=== PATIENT | female | born 1970 | race Asian ===

== ENCOUNTER → 2017-06-14 | Outpatient (CLI) | payer OTHER ==
[~2017-06-14] MED LIST: HYDR25TA11 PO; MEDR10TA3 PO
[2017-06-14 10:23] LABS: HEMATOCRIT 31.7 % (34.6-47.8); HEMOGLOBIN 10.1 g/dL (11.7-16.4); WHITE BLOOD COUNT 5.8 x10^3/uL (3.4-10)
== END | disposition home or self-care (01) ==
LOC: STAR 08:43
PROVIDERS: ATTEND Obstetrics & Gynecology Female Pelvic Medicine and Reconstructive Surgery
DX: Z01.818 Encounter for other preprocedural examination (principal); N92.6 Irregular menstruation, unspecified; N94.6 Dysmenorrhea, unspecified; N81.10 Cystocele, unspecified
CPT/HCPCS: 36415; 85025

== ENCOUNTER 2017-06-18 09:36 | Observation (INO) | payer MEDICAID, OTHER ==
[~2017-06-18] VITALS: Ht 149.9 cm; Wt 46.6 kg
[~2017-06-18 09:36] MED LIST changes: +BUPIVACAINE/PF 0.25% ONE; +EPINEPHRINE 1 MG/ML, 1ML ONE; +NEOMY/POLYMYXIN B GU IRR. 1 ML IRRIG ONE
[2017-06-18] MEDS ORDERED: LACTATED RINGERS 1,000 ML IV SCH (10:09)
[2017-06-18 10:18] LABS: HCG UR LOT HCG7030192
[2017-06-18 10:31] LABS: HCG UR OBC PASS
[2017-06-18] MEDS ORDERED: SCOPOLAMINE PATCH, 1MG PATCH.TD72 TD ONE ×2 (13:30)
[2017-06-18] MEDS ORDERED: ROCURONIUM 10 MG/ML ONE (13:33)
[2017-06-18] MEDS ORDERED: ONDANSETRON 2MG/ML, 2ML ONE (13:33)
[2017-06-18] MEDS ORDERED: SUCCINYLCHOLINE 20 MG/ML, 10ML ONE (13:33)
[2017-06-18] MEDS ORDERED: PROPOFOL 10 MG/ML, 20ML ONE (13:33)
[2017-06-18] MEDS ORDERED: DEXAMETHASONE 4 MG/ML, 1ML ONE (13:33)
[2017-06-18] MEDS ORDERED: GLYCOPYRROLATE 0.2MG/1ML, 5ML ONE (13:33)
[2017-06-18] MEDS ORDERED: MIDAZOLAM 1 MG/ML, 2ML ONE (13:33)
[2017-06-18] MEDS ORDERED: NEOSTIGMINE 1 MG/ML, 10ML ONE (13:33)
[2017-06-18] MEDS ORDERED: CEFAZOLIN 1,000 MG ONE (13:33)
[2017-06-18] MEDS ORDERED: FENTANYL PF 250 MCG/5ML ONE (13:33)
[2017-06-18] MEDS ORDERED: MIDAZOLAM 1 MG/ML, 2ML IV PRN (14:30)
[2017-06-18] MEDS ORDERED: ACETAMINOPHEN 325 MG TABLET PO PRN ×2 (14:30→19:30)
[2017-06-18] MEDS ORDERED: OXYcodone 5 MG/5 ML ORAL.SOL UDC PO PRN (14:30)
[2017-06-18] MEDS ORDERED: hydrALAzine 20 MG/ML, 1ML IV PRN (14:30)
[2017-06-18] MEDS ORDERED: METOPROLOL 1 MG/ML, 5ML IV PRN (14:30)
[2017-06-18] MEDS ORDERED: ALBUTEROL SULFATE 2.5 MG/3 ML NPPB PRN (14:30)
[2017-06-18] MEDS ORDERED: FENTANYL PF 100 MCG/2ML IV PRN (14:30)
[2017-06-18] MEDS ORDERED: MEPERIDINE/PF 25MG/0.5ML IVPush PRN (14:30)
[2017-06-18] MEDS ORDERED: EPHEDRINE 50 MG/ML, 1ML ONE (14:45)
[2017-06-18] MEDS ORDERED: FENTANYL PF 100 MCG/2ML ONE (16:15)
[2017-06-18] MEDS ORDERED: PROMETHAZINE 25 MG/ML, 1ML ONE (16:15)
[2017-06-18] MEDS: PROMETHAZINE 25 MG/ML, 1ML IV PRN ×2 (16:20→16:41)
[2017-06-18] MEDS ORDERED: HYDROmorphone 1 MG/ML, 1ML ONE (16:36)
[2017-06-18] MEDS: HYDROmorphone 1 MG/ML, 1ML IV PRN ×2 (16:38→16:49)
[2017-06-18] MEDS ORDERED: HYDROmorphone 2 MG/ML, 1ML IV PRN (19:30)
[2017-06-18] MEDS ORDERED: ONDANSETRON 2MG/ML, 2ML IV PRN (19:30)
[2017-06-18] MEDS ORDERED: SODIUM CHLORIDE 0.9%, 500ML IVBOLUS PRN ×2 (19:30→20:00)
[2017-06-18] MEDS ORDERED: OXYcodone/APAP 5/325MG TABLET PO PRN (19:30)
[2017-06-18] MEDS ORDERED: ACETAMINOPHEN 650 MG SUPP PR PRN (19:30)
[2017-06-18] MEDS ORDERED: SODIUM CHLORIDE FLUSH 10ML SYR IVF SCH (21:00)
[2017-06-18] MEDS ORDERED: SIMETHICONE 80 MG CHEW TAB PO SCH (21:00)
[2017-06-18] MEDS ORDERED: MEDROXYPROGESTERONE ACETATE 5 MG TABLET PO SCH (21:00)
[2017-06-18] MEDS ORDERED: DOCUSATE 100 MG CAPSULE PO SCH (21:00)
[2017-06-18] MEDS ORDERED: IBUPROFEN 600 MG TABLET PO SCH (21:00)
[2017-06-18] MEDS ORDERED: ZOLPIDEM 5MG TABLET PO PRN (21:00)
== END 2017-06-18 23:00 | disposition home or self-care (01) ==
LOC: OUT 09:36 → 4NOR 18:57 → OUT 20:22 → 4NOR 22:00
PROVIDERS: ADMIT Obstetrics & Gynecology Female Pelvic Medicine and Reconstructive Surgery; ATTEND Obstetrics & Gynecology Female Pelvic Medicine and Reconstructive Surgery
DX: D25.9 Leiomyoma of uterus, unspecified (principal); N92.1 Excessive and frequent menstruation with irregular cycle; I10 Essential (primary) hypertension; N39.3 Stress incontinence (female) (male); N94.6 Dysmenorrhea, unspecified; D64.9 Anemia, unspecified
CPT/HCPCS: 51992; 57260; 58554; 81025; 88307; C1771; G0378; J0171; J0690; J1100; J1170; J2250; J2405; J2550; J2704; J2710; J3010; J3490; J0330